=== PATIENT | male | born 1950 | race Caucasian/White ===

== ENCOUNTER → 2017-10-03 | Outpatient (CLI) | payer OTHER ==
--- NOTE | 2017-10-03 16:03 | DIAGNOSTIC IMAGING REPORT ---
MRI LUMBAR SPINE W/O CONTRAST CLINICAL HISTORY: Persistent low back pain. TECHNIQUE: Sagittal and axial T1, T2 and STIR images were obtained. COMPARISON STUDY: No previous studies for comparison. OBSERVATIONS: The vertebral bodies and posterior elements appear intact. There is no abnormal bony signal present to suggest a marrow replacement process. L1-2: No disc protrusions or extrusions. No evidence of spinal canal or neural foraminal compromise. L2-3: No disc protrusions or extrusions. No evidence of spinal canal or neural foraminal compromise. L3-4: There is a circumferential disc bulge. There is mild spinal stenosis. There is minimal bilateral some foraminal narrowing. L4-5: There is an annular fissure and mild circumferential disc bulge. There is minimal spinal canal narrowing. There is mild bilateral foraminal narrowing L5-S1: There is a grade 1 spondylolisthesis of L5 on S1. There is a tiny central disc protrusion. There is no significant thecal sac deformity. There is mild right-sided foraminal narrowing. The conus medullaris and cauda equina appear normal. IMPRESSION: 1. Mild circumferential disc bulges the L3-4, and L4-5 level with minimal spinal canal narrowing 2. Tiny central disc protrusion at the L5-S1 level. No significant thecal sac deformity. Electronically signed by: Denzel Fuller M.D. 10/03/2017 4:02 PM Dictated Date/Time: 10/03/2017 3:58 PM
== END | disposition home or self-care (01) ==
LOC: C.MRI 15:15
PROVIDERS: ATTEND Orthopaedic Surgery Orthopaedic Surgery of the Spine
DX: M54.5 Low back pain (principal); M51.27 Other intervertebral disc displacement, lumbosacral region